=== PATIENT | female | born 1970 | race Caucasian/White ===

== ENCOUNTER → 2016-10-14 09:49 | Outpatient (CLI) | payer MEDICARE ==
[2016-05-20 07:55] VITALS: BMI 60.3
[~2016-10-14 09:49] MED LIST: ALBUTEROL2.5 MG/3 M INH; ATARAX 25 MG TA25 MG PO; ATROVENT 0.02%2.5 ML UPD; BUSPAR 15 MG TA15 MG PO; GLUCOPHAGE1000 MG PO; JANUVIA100 MG PO; KLONOPIN0.5 MG PO; LANTUS SOL100 UNIT/1 SC; LEVAQUIN750 MG PO; MELATONIN 3 MG1 TAB PO; PAXIL20 MG PO; PREDNISONE20 MG PO; PROAIR HFA8.5 GM INH; PROTONIX40 MG PO; QUESTRAN LIG1 PACKET PO; QVAR8.7 G1 INH; ROXICODONE15 MG PO; SINGULAIR10 MG PO; SOMA350 MG PO; SYMBICORT 16010.2 GM INH; ZANTAC300 MG PO
== END | disposition home or self-care (01) ==
LOC: D.US 09:49
DX: T83.39XA Other mechanical complication of intrauterine contraceptive device, initial encounter (principal)

== ENCOUNTER 2016-10-22 17:11 | Emergency (ER) | payer MEDICARE ==
[2016-05-20 07:55] VITALS: BMI 60.3
== END 2016-10-22 20:55 | disposition home or self-care (01) ==
LOC: D.ER 17:11
DX: N83.202 Unspecified ovarian cyst, left side (principal); N83.201 Unspecified ovarian cyst, right side; F41.9 Anxiety disorder, unspecified; E11.9 Type 2 diabetes mellitus without complications

== ENCOUNTER → 2016-11-18 10:41 | Outpatient (CLI) | payer MEDICARE ==
[2016-05-20 07:55] VITALS: BMI 60.3
[2016-11-19 11:19] LABS: ANA REFLEX - DIRECT Negative (Negative)
== END | disposition home or self-care (01) ==
LOC: D.LAB 10:41 → D.CT 11:30
PROVIDERS: Internal Medicine Pulmonary Disease
DX: J84.9 Interstitial pulmonary disease, unspecified (principal)

== ENCOUNTER → 2017-07-07 10:09 | Outpatient (CLI) | payer MEDICARE ==
[2017-07-07 12:36] VITALS: BMI 62.7
== END ==
LOC: D.FANS 10:09
DX: E66.01 Morbid (severe) obesity due to excess calories (principal)

== ENCOUNTER → 2017-07-27 11:29 | Outpatient (CLI) | payer MEDICARE ==
[2017-07-07 12:36] VITALS: BMI 62.7
[2017-07-27 12:05] LABS: BASOPHILS 0.3 % (0-2); EOSINOPHILS 2.8 % (0-7); HEMATOCRIT 42.1 % (36.0-48.0); HEMOGLOBIN 13.3 g/dL (12-16); IMMATURE GRANULOCYTES 0.6 % (0-5); LYMPHOCYTES 24.1 % (15-50); MCH 28.8 pg (26.0-34.0); MCHC 31.6 g/dL (31.0-37.0); MCV 91.1 fL (80.0-100.0); MEAN PLATELET VOLUME 9.4 fL (7.4-10.4); MONOCYTES 5.9 % (2-11); NEUTROPHILS 66.3 % (40-80); PLATELET COUNT 381 10x3/uL (130-400); RBC 4.62 10x6/uL (4.00-5.40); RDW 16.1 % (11.5-14.5)
[2017-07-27 12:22] LABS: HELICOBACTER PYLORI IGG NEGATIVE (NEGATIVE)
[2017-07-27 12:25] LABS: APTT 27.9 SECONDS (22.8-39.4); INR 0.97 (0.85-1.17); PROTIME 12.7 SECONDS (11.6-15.0)
[2017-07-27 12:29] LABS: ALBUMIN 2.9 g/dL (3.4-5.0); ALKALINE PHOSPHATASE 101 U/L (46-116); ALT (SGPT) 17 U/L (10-68); BILIRUBIN - DIRECT 0.02 mg/dL (0.00-0.30); BILIRUBIN - INDIRECT 0.05 mg/dL (0.00-1.00); BILIRUBIN - TOTAL 0.07 mg/dL (0.2-1.3); CALC OSMOLALITY 277 mosm/kg (275-300); CALCIUM 8.9 mg/dL (8.5-10.1); CARBON DIOXIDE 27.3 mmol/L (21.0-32.0); CHLORIDE - SERUM 103 mmol/L (98-107); CHOL - HDL RATIO 3.2 ratio (2.3-4.1); CHOLESTEROL, TOTAL 161 mg/dL (0-200); CREATININE - SERUM 0.7 mg/dL (0.6-1.3); GLUCOSE 118 mg/dL (74-106); HDL CHOLESTEROL 50 mg/dL (32-96); LDL CHOLESTEROL 75 mg/dL (0-100); LDL-HDL RATIO 1.5 ratio (1.5-3.5); POTASSIUM - SERUM 4.1 mmol/L (3.5-5.1); PROTEIN - SERUM 7.5 g/dL (6.4-8.2); SODIUM 139 mmol/L (136-145); T4 THYROXINE 7.7 ug/dL (4.7-13.3); THYROID STIMULATING HORMONE 2.13 uIU/mL (0.36-3.74); TRIGLYCERIDE 183 mg/dL (30-200); UREA NITROGEN 9 mg/dL (7-18); eGFR NON AFRICAN AMERICAN > 90 mL/min (90-120)
[2017-07-28 07:29] LABS: FOLATE (FOLIC ACID) - SERUM 13.2 ng/mL (>3.0)
== END | disposition home or self-care (01) ==
LOC: D.LAB 11:29
PROVIDERS: Surgery
DX: K21.9 Gastro-esophageal reflux disease without esophagitis (principal); J44.9 Chronic obstructive pulmonary disease, unspecified; J45.909 Unspecified asthma, uncomplicated; K62.5 Hemorrhage of anus and rectum; E11.9 Type 2 diabetes mellitus without complications; E66.01 Morbid (severe) obesity due to excess calories

== ENCOUNTER → 2017-09-22 20:23 | Outpatient (CLI) | payer MEDICARE ==
[2017-07-07 12:36] VITALS: BMI 62.7
== END | disposition home or self-care (01) ==
LOC: D.SLEEP 20:00
DX: G47.33 Obstructive sleep apnea (adult) (pediatric) (principal)

== ENCOUNTER → 2017-10-18 08:19 | Outpatient (CLI) | payer MEDICARE ==
[2017-07-07 12:36] VITALS: BMI 62.7
== END | disposition home or self-care (01) ==
LOC: D.RAD 10-11 09:00
DX: E66.01 Morbid (severe) obesity due to excess calories (principal)

== ENCOUNTER → 2017-11-18 16:54 | Outpatient (CLI) | payer MEDICARE ==
[2017-07-07 12:36] VITALS: BMI 62.7
[~2017-11-18 16:54] MED LIST changes: +ALTACE5 MG PO; +BREO ELLIPTA 21 EACH; +CO Q-1050 MG PO; +ESTER-C 500 MG1 TAB PO; +HYDROCHLOROTHIA25 MG PO; +LANTUS INSULIN10 ML SC; +MEPERIDINE HCL50 MG PO; +NEURONTIN 300300 MG PO; +OMEPRAZOLE40 MG PO; +VENTOLIN HFA18 GM INH; +ZOFRAN ODT4 MG/UDTAB PO
== END | disposition home or self-care (01) ==
LOC: D.MAMMO 10-22 13:30
DX: Z12.31 Encounter for screening mammogram for malignant neoplasm of breast (principal)

== ENCOUNTER 2017-12-14 10:15 | Outpatient (CLI) | payer MEDICARE ==
[2017-07-07 12:36] VITALS: BMI 62.7
[~2017-12-14 10:15] MED LIST changes: -ALTACE5 MG PO; -BREO ELLIPTA 21 EACH; -CO Q-1050 MG PO; -ESTER-C 500 MG1 TAB PO; -HYDROCHLOROTHIA25 MG PO; -LANTUS INSULIN10 ML SC; -MEPERIDINE HCL50 MG PO; -NEURONTIN 300300 MG PO; -OMEPRAZOLE40 MG PO; -VENTOLIN HFA18 GM INH; -ZOFRAN ODT4 MG/UDTAB PO
[2018-01-07] MEDS ORDERED: NEURONTIN 300300 MG PO (09:50)
[2018-01-07] MEDS ORDERED: HYDROCHLOROTHIA25 MG PO (09:52)
[2018-01-07] MEDS ORDERED: LANTUS INSULIN10 ML SC (09:55)
[2018-01-07] MEDS ORDERED: ALTACE5 MG PO (09:56)
[2018-01-07] MEDS ORDERED: ZANTAC300 MG PO (09:56)
[2018-01-07] MEDS ORDERED: VENTOLIN HFA18 GM INH (09:57)
[2018-01-07] MEDS ORDERED: ESTER-C 500 MG1 TAB PO (09:58)
[2018-01-07] MEDS ORDERED: CO Q-1050 MG PO (10:00)
[2018-01-07] MEDS ORDERED: BREO ELLIPTA 21 EACH (10:00)
== END 2017-12-14 12:05 ==
LOC: D.OPS 10:15
DX: E66.01 Morbid (severe) obesity due to excess calories (principal)

== ENCOUNTER 2018-01-10 07:30 | Inpatient (IN) | payer MEDICARE ==
[2018-01-07 11:19] LABS: HEMATOCRIT 43.2 % (36.0-48.0); HEMOGLOBIN 13.6 g/dL (12-16); MCH 29.5 pg (26.0-34.0); MCHC 31.5 g/dL (31.0-37.0); MCV 93.7 fL (80.0-100.0); MEAN PLATELET VOLUME 9.6 fL (7.4-10.4); RBC 4.61 10x6/uL (4.00-5.40); RDW 15.1 % (11.5-14.5)
[2018-01-07 11:56] LABS: ANION GAP 12.6 mmol/L (8-16); CALCIUM 8.4 mg/dL (8.5-10.1); CARBON DIOXIDE 29.7 mmol/L (21.0-32.0); POTASSIUM - SERUM 4.3 mmol/L (3.5-5.1)
[2018-01-10] VITALS (15 sets, daily range): BP systolic 18–144; BP diastolic 50–95; BMI 62.8; BMI 64.6
[~2018-01-10] VITALS: Ht 147.3 cm; Wt 142.5 kg
--- NOTE | ~2018-01-10 | DS ---
PATIENT:BOBBY LEMUS :74 MEDICAL RECORD: [id number] DISCHARGE SUMMARY ADMISSION DATE: 01/10/18 DISCHARGE DATE: 01/11/18 DATE OF ADMISSION: 01/10/2018 DATE OF DISCHARGE: 01/11/2018 ADMITTING PHYSICIAN: Ty Champagne MD DISCHARGE PHYSICIAN: Ty Champagne MD ADMITTING DIAGNOSES: Morbid obesity, chronic respiratory failure, body mass index 60-69.9, chronic obstructive pulmonary disease, gastroesophageal reflux disease, type 2 diabetes, essential hypertension, and obstructive sleep apnea. DISCHARGE DIAGNOSIS: Status post laparoscopic sleeve gastrectomy. HOSPITAL COURSE: The patient was admitted to the hospital for an elective laparoscopic sleeve gastrectomy, which she tolerated well. Postoperatively, the patient was transferred to the floor in stable condition. Her postoperative course was without complication. She was started on a bariatric phase 1 clear liquid diet. On postoperative day 1, she had a Gastrografin swallow, which was within normal limits. She was advanced to bariatric phase 2 clear liquid diet. At the time of discharge, the patient was tolerating her bariatric phase 2 diet. She was ambulating independently. Her pain was well controlled on oral pain medicine, and she was voiding without difficulty. DISCHARGE CONDITION: Stable. DISCHARGE DIET: Bariatric phase 2 liquid diet for 2 weeks. FOLLOWUP: Follow up with Dr. Champagne in 2 weeks. DISCHARGE ACTIVITY: As tolerated, no restrictions. WOUND CARE: The patient may shower, soap and water the wound daily. No bath for 2 weeks. TRANSINT:[id number] Voice Confirmation ID: [id number] DOCUMENT ID: [id number] TY CHAMPAGNE MD at 1509 CC: [id number] DICTATION DATE: 01/26/18 1458 CCO & PRESIDENT: 01/27/18 1410 DIS IN 01/11/18 [facility] [address] [id number]
--- NOTE | ~2018-01-10 | CN ---
PATIENT NAME:BOBBY LEMUS MEDICAL RECORD: [id number] : 74 LOCATION:[id number] ADMIT DATE: 01/10/18 ACCOUNT: [id number] CONSULTING PHYSICIAN: SILVINO GALVIN MD REFERRING PHYSICIAN: TY CHAMPAGNE MD DATE OF CONSULTATION: 01/10/2018 CONSULT REQUESTING PHYSICIAN: Dr. YAMILEX Champagne. REASON FOR CONSULTATION: COPD, asthma, status post bariatric surgery. HISTORY OF PRESENT ILLNESS: Ms. Tavares is a 47-year-old female, who has a history of asthma and COPD. The patient has a gastric sleeve bariatric surgery today. The patient was slow to wake up and recover, but the patient was extubated and brought into the ICU for close observation. Now, she is awake and alert. She is doing well. She is breathing better. There is no shortness of breath. REVIEW OF SYSTEMS: Mainly in the history of present illness. PAST MEDICAL HISTORY: 1. COPD. 2. Asthma. 3. History of pneumonia. 4. Gastroesophageal reflux disease. 5. Chronic hypoxic respiratory failure. 6. History of interstitial pneumonitis. 7. History of nonalcoholic fatty liver. PAST SURGICAL HISTORY: Status post cholecystectomy, now she is status post bariatric surgery. ALLERGIES: SHE IS ALLERGIC TO PENICILLIN, HYDROCODONE, DICYCLOMINE, AND SULFA. PRESENT MEDICATIONS: [employer] is reviewed. PERSONAL AND SOCIAL HISTORY: The patient is an ex-smoker. She is a nondrinker. FAMILY HISTORY: Noncontributory. PHYSICAL EXAMINATION: GENERAL: Now, the patient is lying comfortably in bed. She is not in acute distress. VITAL SIGNS: The blood pressure is 118/80, pulse is 90, respiratory rate 16, temperature is 97.9, SpO2 is 97% on CPAP machine. HEENT: Conjunctivae are pink. Sclerae are not icteric. NECK: Supple, no JVD. CHEST: The chest excursion is equal on both sides. There is no wheeze, no rales. HEART: Rhythm regular. Normal heart sounds. ABDOMEN: There is an incision. Bowel sounds are absent. RECTAL: Deferred. EXTREMITIES: No cyanosis, no clubbing, no pedal edema. CENTRAL NERVOUS SYSTEM: The patient is awake and alert. There is no obvious cranial nerve abnormality. The gait was not tested. CONSULT REPORT [id number] BOBBY LEMUS LABORATORY DATA: CBC: WBC 16,000, hemoglobin 13.6, hematocrit 43.2, the platelet count is 307. Chemistry: Sodium 137, potassium 4.3, BUN is 10, creatinine is 1, glucose 138. IMPRESSION: 1. Status post bariatric surgery: 2. Gastric sleeve. 3. Chronic hypoxic respiratory failure. 4. Obstructive sleep apnea. 5. Asthma. 6. Chronic obstructive pulmonary disease. 7. Morbid obesity. RECOMMENDATION: 1. Continue supplemental oxygen and CPAP machine. 2. Albuterol-ipratropium nebulizer. 3. Brovana-budesonide nebulizer. 4. DVT prophylaxis. 5. Follow up labs. 6. Dr. Champagne, thank you for involving me in the care of Ms. Lemus. 7. Incentive spirometry and Acapella q.2 hourly when awake. TRANSINT:[id number] Voice Confirmation ID: [id number] DOCUMENT ID: [id number] SILVINO GALVIN MD at 1208 CC: TY CHAMPAGNE MD [id number] DICTATION DATE: 01/10/18 170 SPECIAL EDUCATOR: 01/11/18 0013 DIS IN 01/11/18 [facility] [address] [place] [address]
[~2018-01-10 07:30] MED LIST changes: +ALTACE5 MG PO; +BREO ELLIPTA 21 EACH; +CO Q-1050 MG PO; +ESTER-C 500 MG1 TAB PO; +HYDROCHLOROTHIA25 MG PO; +LANTUS INSULIN10 ML SC; +NEURONTIN 300300 MG PO; +VENTOLIN HFA18 GM INH
[2018-01-10] MEDS ORDERED: ALBUTEROL2.5 MG/3 M INH (08:31)
[2018-01-10] MEDS ORDERED: PROAIR HFA8.5 GM INH (08:32)
[2018-01-10 09:58] LABS: HCG SERUM NEGATIVE (NEGATIVE)
[2018-01-11] VITALS (14 sets, daily range): BP systolic 106–164; BP diastolic 64–92; Ht 147.3 cm; Wt 142.5 kg
[2018-01-11 04:59] LABS: BASOPHILS 0.1 % (0-2); EOSINOPHILS 0.7 % (0-7); HEMOGLOBIN 12.6 g/dL (12-16); IMMATURE GRANULOCYTES 0.4 % (0-5); LYMPHOCYTES 15.1 % (15-50); MCH 28.9 pg (26.0-34.0); MCHC 30.7 g/dL (31.0-37.0); MEAN PLATELET VOLUME 10.1 fL (7.4-10.4); MONOCYTES 5.4 % (2-11); NEUTROPHILS 78.3 % (40-80); PLATELET COUNT 292 10x3/uL (130-400); RBC 4.36 10x6/uL (4.00-5.40); RDW 15.1 % (11.5-14.5); WBC 15.8 10x3/uL (4.8-10.8)
[2018-01-11 05:32] LABS: ALBUMIN 2.4 g/dL (3.4-5.0); ALKALINE PHOSPHATASE 91 U/L (46-116); ALT (SGPT) 47 U/L (10-68); CALC OSMOLALITY 276 mosm/kg (275-300); CALCIUM 7.9 mg/dL (8.5-10.1); CARBON DIOXIDE 29.7 mmol/L (21.0-32.0); CHLORIDE - SERUM 103 mmol/L (98-107); CREATININE - SERUM 0.8 mg/dL (0.6-1.3); GLUCOSE 157 mg/dL (74-106); POTASSIUM - SERUM 4.2 mmol/L (3.5-5.1); PROTEIN - SERUM 6.7 g/dL (6.4-8.2); SODIUM 138 mmol/L (136-145); UREA NITROGEN 6 mg/dL (7-18); eGFR NON AFRICAN AMERICAN 82 mL/min (90-120)
[2018-01-11] MEDS ORDERED: OMEPRAZOLE40 MG PO (14:29)
[2018-01-11] MEDS ORDERED: MEPERIDINE HCL50 MG PO (14:30)
[2018-01-11] MEDS ORDERED: ZOFRAN ODT4 MG/UDTAB PO (14:30)
== END 2018-01-11 16:12 | disposition home or self-care (01) | DRG 620 ==
LOC: D.ICU 07:30 → D.SDCHOLD 07:30 → D.ICU 13:17
PROVIDERS: Anesthesiology; Surgery
PROC: 0DB64Z3 Excision of Stomach, Percutaneous Endoscopic Approach, Vertical (ICD-10-PCS; principal; 2018-01-10 09:30)
DX: E66.01 Morbid (severe) obesity due to excess calories (principal); J96.11 Chronic respiratory failure with hypoxia; Z68.44 Body mass index [BMI] 60.0-69.9, adult; J44.9 Chronic obstructive pulmonary disease, unspecified; K21.9 Gastro-esophageal reflux disease without esophagitis; E11.9 Type 2 diabetes mellitus without complications; I10 Essential (primary) hypertension; G47.33 Obstructive sleep apnea (adult) (pediatric)

== ENCOUNTER → 2018-04-06 12:37 | Outpatient (CLI) | payer MEDICARE ==
[2018-01-11 09:32] VITALS: BMI 65.6
[~2018-04-06 12:37] MED LIST changes: +MEPERIDINE HCL50 MG PO; +OMEPRAZOLE40 MG PO; +ZOFRAN ODT4 MG/UDTAB PO
[2018-04-06 13:27] LABS: CREATININE - SERUM 0.9 mg/dL (0.6-1.3)
[2018-04-06 15:07] LABS: BASOPHILS 0.6 % (0-2); EOSINOPHILS 3.1 % (0-7); HEMATOCRIT 45.3 % (36.0-48.0); HEMOGLOBIN 14.5 g/dL (12-16); IMMATURE GRANULOCYTES 0.2 % (0-5); LYMPHOCYTES 32.9 % (15-50); MCH 28.4 pg (26.0-34.0); MCV 88.6 fL (80.0-100.0); MEAN PLATELET VOLUME 10.1 fL (7.4-10.4); MONOCYTES 5.7 % (2-11); NEUTROPHILS 57.5 % (40-80); RBC 5.11 10x6/uL (4.00-5.40); RDW 15.2 % (11.5-14.5); WBC 12.1 10x3/uL (4.8-10.8)
[2018-04-06 15:10] LABS: PLATELET COUNT 405 10x3/uL (130-400)
== END | disposition home or self-care (01) ==
LOC: D.LAB 12:37
PROVIDERS: Surgery
DX: Z01.812 Encounter for preprocedural laboratory examination (principal); K21.9 Gastro-esophageal reflux disease without esophagitis; J44.9 Chronic obstructive pulmonary disease, unspecified

== ENCOUNTER 2018-08-29 05:25 | Day surgery (SDC) | payer MEDICARE ==
[2018-08-26 10:37] LABS: BASOPHILS 0.4 % (0-2); EOSINOPHILS 3.2 % (0-7); HEMATOCRIT 45.1 % (36.0-48.0); HEMOGLOBIN 14.8 g/dL (12-16); IMMATURE GRANULOCYTES 0.2 % (0-5); LYMPHOCYTES 36.3 % (15-50); MCH 28.1 pg (26.0-34.0); MCHC 32.8 g/dL (31.0-37.0); MCV 85.6 fL (80.0-100.0); MEAN PLATELET VOLUME 9.2 fL (7.4-10.4); MONOCYTES 6.2 % (2-11); NEUTROPHILS 53.7 % (40-80); PLATELET COUNT 379 10x3/uL (130-400); RBC 5.27 10x6/uL (4.00-5.40); RDW 16.8 % (11.5-14.5)
[2018-08-26 10:46] LABS: CALC OSMOLALITY 277 mosm/kg (275-300); CALCIUM 8.8 mg/dL (8.5-10.1); CARBON DIOXIDE 34.8 mmol/L (21.0-32.0); CHLORIDE - SERUM 99 mmol/L (98-107); CREATININE - SERUM 0.8 mg/dL (0.6-1.3); POTASSIUM - SERUM 3.8 mmol/L (3.5-5.1); SODIUM 140 mmol/L (136-145); UREA NITROGEN 14 mg/dL (7-18); eGFR NON AFRICAN AMERICAN 82 mL/min (90-120)
[2018-08-26 10:58] LABS: GLUCOSE 68 mg/dL (74-106)
[~2018-08-29] VITALS: Ht 147.3 cm; Wt 110.2 kg
--- NOTE | ~2018-08-29 | OP ---
PATIENT NAME: BOBBY LEMUS MEDICAL RECORD: [id number] :74 LOCATION:D[facility] ADMISSION DATE: SURGEON: THERESA SEARS MD DATE OF OPERATION: 08/29/2018 PREOPERATIVE DIAGNOSES: 1. Menorrhagia. 2. Chronic pelvic pain, right greater than left. 3. Morbid obesity. POSTOPERATIVE DIAGNOSES: 1. Menorrhagia. 2. Chronic pelvic pain, right greater than left. 3. Morbid obesity. 4. Adhesive disease. PROCEDURES PERFORMED: 1. Diagnostic laparoscopy. 2. Lysis of adhesions. 3. Laparoscopic subtotal hysterectomy. 4. Bilateral salpingectomy. 5. Right oophorectomy. SURGEON: Theresa Sears MD CABLE FORMER: Daniel Silverio. ANESTHESIOLOGIST: Dr. Lezama ANESTHETIC: General. FINDINGS: Uterus is unremarkable and both tubes being unremarkable as well. Both ovaries are unremarkable. There is no active endometriosis that is obvious. There are adhesions of the omentum densely adhered in the midline What was visualized of the abdominal anatomy is unremarkable. SPECIMENS REMOVED: 1. Uterus without cervix. 2. Bilateral tubes. 3. Right ovary. SPECIMEN DISPOSITION: All specimens to pathology. ESTIMATED BLOOD LOSS: Less than or equal to 100 cc. FLUIDS: 1700 cc of lactated Ringer's. URINE OUTPUT: 300 cc clear urine. COMPLICATIONS: None. DRAIN: Teran to gravity discontinued upon arrival to women's services. INDICATIONS: The patient is a 47-year-old female with heavy painful periods. The patient has had this issue for several years. The patient has tried OPERATIVE REPORT [id number] BOBBY LEMUS conservative therapy without relief. The discomforts and bleeding has become intolerable and the negative impact on quality of life. The patient is specifically counseled in regards to laparoscopic subtotal hysterectomy with its risks, benefits, and limitations. DESCRIPTION OF PROCEDURE: After informed consent was assured, the patient was taken to the operating room where anesthetic was obtained without difficulty. The patient was now prepped and draped in the usual sterile fashion. An incision was made at the umbilicus to accommodate a 5-mm trocar, which was inserted without difficulty. The pneumoperitoneum developed. Accessory ports were placed in the right and left lower quadrants. The right lower quadrant is a 10-12 Xcel. Left lower quadrant port was a 5-mm port. During the procedure, an additional 5-mm port was placed in the midline for manipulation of the bowel out of the surgical field. With the patient in Trendelenburg position, the right tube and ovary were elevated. Using a coagulation cutter, the infundibulopelvic ligament was compressed, coagulated, and . This dissection was carried out underneath the ovary and tube across the uteroovarian ligament and round ligaments. The broad ligament was opened and the bladder flap developed to the midline. The posterior leaf was opened. The vessels of the right side skeletonized, compressed, and coagulated. Attention was directed to the left side. The left tube was elevated. The midportion of the left tube is compressed, coagulated, and . The dissection was carried out over the uterine ovarian ligaments, round ligaments, and the broad ligament as before. Posterior leaf was opened and the vessels skeletonized. The bladder flap was now fully developed. The vessels were now compressed, coagulated, and . Using a Harmonic scalpel, the uterus was now removed from its attachments into the cervix at the level of the internal os. A reverse cone technique was used to perform this. This dissection begins on the left and concludes on the right. The endocervical canal was now cauterized. Urine is clear at this point. The morcellator now replaced was a 10-12 port and the uterus was removed in several segments. Also removed is the ovary and tubes. The distal portion of the left tube is now elevated from the patient's left hand side and using a coagulation cutter it is removed from its attachments to the left ovary. This is extracted through the 10-12 port. Pelvis is now copiously irrigated and irrigant removed. Again, the irrigant was placed in the abdomen at this time, all surgical ibanez visualized under water and no bleeding vessels were encountered. The irrigant was again removed with the patient in reverse Trendelenburg at this point. With the patient back in Trendelenburg, Interceed was placed over the operative field. Sponge, lap, and needle counts correct times 2 at the close of this procedure. Pneumoperitoneum was now released and the skin reapproximated with a subcuticular stitch. Dermabond was applied. The patient will go to women's services prior to discharge. TRANSINT:[id number] Voice Confirmation ID: [id number] DOCUMENT ID: [id number] THERESA SEARS MD at 1248 CC: [id number] DICTATION DATE: 08/29/18 0927 BRIDGE OPERATOR SLIP: 08/29/18 1122 [facility] 08/29/[id number] [place] [address]
[2018-08-29] MEDS ORDERED: VISTARIL25 MG PO (05:58)
[2018-08-29] MEDS ORDERED: TOFRANIL25 MG PO (05:59)
[2018-08-29] MEDS ORDERED: AMBIEN10 MG PO (05:59)
[2018-08-29] MEDS ORDERED: BUSPAR5 MG PO (06:00)
[2018-08-29 06:08] VITALS: BP 117/66; Ht 147.3 cm; Wt 110.2 kg
[2018-08-29 10:12] VITALS: BP 119/57
[2018-08-29 10:38] VITALS: BP 122/57
[2018-08-29 11:15] VITALS: BP 116/63
[2018-08-29 11:30] VITALS: BP 119/68
[2018-08-29 12:09] VITALS: BP 123/59
== END 2018-08-29 13:20 | disposition home or self-care (01) ==
LOC: D.OPS 05:25 → D.PAN 07:30 → D.OPS 08:15 → D.PAN 08:15 → D.LD 10:19 → D.OPS 13:20
PROVIDERS: Obstetrics & Gynecology
DX: N92.0 Excessive and frequent menstruation with regular cycle (principal); N73.6 Female pelvic peritoneal adhesions (postinfective); E66.01 Morbid (severe) obesity due to excess calories; Z68.43 Body mass index [BMI] 50.0-59.9, adult; Z01.812 Encounter for preprocedural laboratory examination

== ENCOUNTER → 2018-09-30 11:14 | Outpatient (CLI) | payer MEDICARE ==
[2018-08-29 06:08] VITALS: BMI 50.9
[~2018-09-30 11:14] MED LIST changes: +AMBIEN10 MG PO; +BUSPAR5 MG PO; +TOFRANIL25 MG PO; +VISTARIL25 MG PO
[2018-09-30 11:36] LABS: BASOPHILS 0.5 % (0-2); EOSINOPHILS 2.6 % (0-7); HEMATOCRIT 43.8 % (36.0-48.0); HEMOGLOBIN 14.4 g/dL (12-16); IMMATURE GRANULOCYTES 0.2 % (0-5); LYMPHOCYTES 32.9 % (15-50); MCH 28.6 pg (26.0-34.0); MCHC 32.9 g/dL (31.0-37.0); MCV 87.1 fL (80.0-100.0); MEAN PLATELET VOLUME 9.3 fL (7.4-10.4); MONOCYTES 4.4 % (2-11); NEUTROPHILS 59.4 % (40-80); PLATELET COUNT 368 10x3/uL (130-400); RBC 5.03 10x6/uL (4.00-5.40); RDW 16.8 % (11.5-14.5); WBC 12.8 10x3/uL (4.8-10.8)
[2018-09-30 11:43] LABS: CREATININE - SERUM 0.8 mg/dL (0.6-1.3)
== END | disposition home or self-care (01) ==
LOC: D.LAB 11:14
PROVIDERS: Surgery
DX: Z01.812 Encounter for preprocedural laboratory examination (principal); K21.9 Gastro-esophageal reflux disease without esophagitis; E11.9 Type 2 diabetes mellitus without complications

== ENCOUNTER → 2018-12-05 09:56 | Outpatient (CLI) | payer MEDICARE ==
[2018-08-29 06:08] VITALS: BMI 50.9
== END | disposition home or self-care (01) ==
LOC: D.MRI 09:56
PROVIDERS: ATTEND Nurse Practitioner Family
DX: M25.561 Pain in right knee (principal)

== ENCOUNTER 2019-02-03 07:50 | Day surgery (SDC) | payer MEDICARE | END 2019-02-03 14:35 | disposition home or self-care (01) | LOC: D.OPS 07:50 | DX: M22.2X1 Patellofemoral disorders, right knee (principal); M94.261 Chondromalacia, right knee; S83.281A Other tear of lateral meniscus, current injury, right knee, initial encounter; X58.XXXA Exposure to other specified factors, initial encounter; Z01.812 Encounter for preprocedural laboratory examination ==

== ENCOUNTER 2020-06-28 09:20 | Emergency (ER) | payer MEDICARE, MEDICAID ==
[~2020-06-28] VITALS: Ht 147.3 cm; Wt 113.6 kg
[~2020-06-28 09:20] MED LIST changes: +PERCOCET 10-321 EAC1 PO; +TYLENOL #4 W/CO1 TAB PO; +VISTARIL50 MG PO
[2020-06-28 09:37] VITALS: Ht 147.3 cm; Wt 113.6 kg
[2020-06-28 10:46] LABS: BASOPHILS 0.1 % (0-2); EOSINOPHILS 1.1 % (0-7); HEMATOCRIT 33.9 % (36.0-48.0); HEMOGLOBIN 10.6 g/dL (12-16); IMMATURE GRANULOCYTES 0.4 % (0-5); LYMPHOCYTES 7.2 % (15-50); MCH 28.6 pg (26.0-34.0); MCHC 31.3 g/dL (31.0-37.0); MCV 91.6 fL (80.0-100.0); MEAN PLATELET VOLUME 8.9 fL (7.4-10.4); MONOCYTES 4.6 % (2-11); NEUTROPHILS 86.6 % (40-80); PLATELET COUNT 414 10x3/uL (130-400); RDW 16.1 % (11.5-14.5); WBC 19.3 10x3/uL (4.8-10.8)
[2020-06-28 10:54] LABS: CALC OSMOLALITY 273 mosm/kg (275-300); CALCIUM 8.9 mg/dL (8.5-10.1); CARBON DIOXIDE 31.1 mmol/L (21.0-32.0); CHLORIDE - SERUM 99 mmol/L (98-107); CREATININE - SERUM 0.9 mg/dL (0.6-1.3); GLUCOSE 119 mg/dL (74-106); POTASSIUM - SERUM 3.9 mmol/L (3.5-5.1); SODIUM 137 mmol/L (136-145); UREA NITROGEN 10 mg/dL (7-18); eGFR NON AFRICAN AMERICAN 71 mL/min (90-120)
[2020-06-28 11:14] LABS: ALBUMIN 2.7 g/dL (3.4-5.0); ALKALINE PHOSPHATASE 117 U/L (30-120); ALT (SGPT) 14 U/L (10-68); BILIRUBIN - TOTAL 0.22 mg/dL (0.2-1.3); C-REACTIVE PROTEIN 9.3 mg/dL (0.0-0.9); FERRITIN 140 ng/mL (3-244); MAGNESIUM - SERUM 1.7 mg/dL (1.8-2.4); PRO BNP 118 pg/mL (0-125); PROTEIN - SERUM 7.6 g/dL (6.4-8.2); THYROID STIMULATING HORMONE 1.41 uIU/mL (0.36-3.74)
[2020-06-28 11:16] LABS: TROPONIN-I < 0.017 ng/mL (0.000-0.060)
[2020-06-28] MEDS ORDERED: VITAMIN D50000 UNI2 PO (11:42)
[2020-06-28] MEDS ORDERED: ZPAK PO (11:42)
[2020-06-28] MEDS ORDERED: OMNICEF300 MG PO (11:42)
[2020-06-28] MEDS ORDERED: DECADRON4 MG PO (11:42)
[2020-06-28 12:04] VITALS: BP 115/60
[2020-06-28 12:35] LABS: APTT 33.7 SECONDS (22.8-39.4); INR 1.08 (0.85-1.17)
== END 2020-06-28 12:05 | disposition home or self-care (01) ==
LOC: D.ER 09:20
PROVIDERS: Emergency Medicine
DX: Z20.828 Contact with and (suspected) exposure to other viral communicable diseases (principal); J18.9 Pneumonia, unspecified organism; D72.829 Elevated white blood cell count, unspecified; J81.1 Chronic pulmonary edema; R79.82 Elevated C-reactive protein (CRP); J44.9 Chronic obstructive pulmonary disease, unspecified; K21.9 Gastro-esophageal reflux disease without esophagitis; R51.9 Headache, unspecified